=== PATIENT | male | born 1960 | race Hispanic/Latino ===

== ENCOUNTER 2017-08-28 10:22 | Outpatient (CLI) | payer BC ==
--- NOTE | 2017-08-28 10:45 | XRay Report ---
Right shoulder 3 views: History: Shoulder pain. Findings: Mild arthritic changes a.c. joint. Decrease in acromiohumeral space the glenohumeral joint appears normal. No soft tissue calcification. Impression: Arthritic changes a.c. joint. Decrease in acromiohumeral space may be related to chronic impingement.
== END 2017-08-28 10:23 | disposition home or self-care (01) ==
LOC: SPVIMAG 10:22
PROVIDERS: ATTEND Orthopaedic Surgery Sports Medicine
DX: M19.011 Primary osteoarthritis, right shoulder (principal)